=== PATIENT | male | born 1965 | race Caucasian/White ===

== ENCOUNTER 2019-01-16 21:04 | Emergency (ER) | payer OTHER ==
[2019-01-16 21:15] VITALS: RESP 18
[2019-01-16] MEDS ORDERED: Iohexol 240 (50 ml) PO STA (22:35)
[2019-01-16] MEDS ORDERED: Iohexol 240 (50 ml) ONE (22:42)
--- NOTE | 2019-01-16 22:58 | C.PDOC ---
History Of Present Illness 53 year old male was taking a bath yesterday and slipped out of the tub, lost his balance and grabbed onto the light switch and shocked himself, he was able to let go and fell into the tub and struck his lower back and flank. Since this morning he reports having trouble passing urine, states he has a weak stream and abdominal distention. Denies dysuria but did note bloody urine tonight.. Time Seen by Provider: 01/16/19 21:56 Chief Complaint (Nursing): Trauma History Per: Patient History/Exam Limitations: no limitations Onset/Duration Of Symptoms: Other (Yesterday) Current Symptoms Are (Timing): Still Present Associated Symptoms: Other (Trouble passing urine) Alleviating Factors: None Recent travel outside of the [place]: No Past Medical History Reviewed: Historical Data, Nursing Documentation, Vital Signs Vital Signs: Last Vital Signs Temp 97.9 F 01/16/19 21:08 Pulse 100 H 01/16/19 21:08 Resp 18 01/16/19 21:08 BP 192/148 H 01/16/19 21:08 Pulse Ox 97 01/16/19 21:08 Primary Care Provider: Non [facility] Provider, - Medical History PMH: Back Problems, Depression, HTN, Hyperlipidemia Family History: States: Unknown Family Hx - Social History Hx Alcohol Use: No (DENIED) Hx Substance Use: No (DENIED) - Immunization History Hx Tetanus Toxoid Vaccination: No Hx Influenza Vaccination: No Hx Pneumococcal Vaccination: No Review Of Systems Constitutional: Negative for: Fever, Chills Cardiovascular: Negative for: Chest Pain, Palpitations Respiratory: Negative for: Cough, Shortness of Breath Gastrointestinal: Positive for: Other (Abdominal distention). Negative for: Nausea, Vomiting Genitourinary: Positive for: Other (Trouble passing urine). Negative for: Dysuria, Hematuria Skin: Positive for: Bruising Neurological: Negative for: Weakness, Numbness Physical Exam - Physical Exam Appears: Non-toxic Skin: Warm, Ecchymosis (several area at his right lower back and right hip) Head: Atraumatic, Normacephalic Eye(s): bilateral: Normal Inspection Oral Mucosa: Moist Neck: Normal, No Midline Cervical Tenderness, No Paracervical Tenderness, Supple Chest: Symmetrical, No Tenderness Cardiovascular: Rhythm Regular Respiratory: Normal Breath Sounds, No Rales, No Rhonchi, No Wheezing Gastrointestinal/Abdominal: Bowel Sounds (Quiet), Soft, Tenderness (Suprapubic), Distention (Mildly) Back: Other (Diffuse tenderness, no point spinal tenderness) Extremity: Normal ROM (x4) Neurological/Psych: Oriented x3, Normal Speech Gait: Steady (Able to weight bear) ED Course And Treatment - Laboratory Results Result Diagrams: 01/16/19 23:16 01/16/19 23:16 Lab Interpretation: Abnormal (WBC 12.5, BUN 23, CPK 422, UA RBC 1184) O2 Sat by Pulse Oximetry: 97 (room air) Pulse Ox Interpretation: Normal Progress Note: CT abd/pel, EKG, blood work, and urinalysis ordered. Lopressor administered. Patient treated with IV fluids and Percocet. Disposition - Disposition Disposition Time: 00:50 Condition: FAIR - Clinical Impression Clinical Impression: Contusion, back, Hematuria - PA / HEAD BANQUET WAITRESS / Resident Statement MD/DO has reviewed & agrees with the documentation as recorded. - Scribe Statement The provider has reviewed the documentation as recorded by the Scribe Dariusz Pereira All medical record entries made by the Delmyibrose were at my direction and personally dictated by me. I have reviewed the chart and agree that the record accurately reflects my personal performance of the history, physical exam, medical decision making, and the department course for this patient. I have also personally directed, reviewed, and agree with the discharge instructions and disposition. Physician Patient Turnover Patient Signed Over To: Latisha Anderson Handoff Comments: Pending CT scan
[2019-01-16 23:19] LABS: BASO # 0.1 K/uL (0.0-0.2); BASO % 0.8 % (0.0-2.0); EOS # 0.6 K/uL (0.0-0.7); HEMOGLOBIN 16.2 g/dL (12.0-18.0); LYMPH # 2.6 K/uL (1.0-4.3); LYMPH % 20.4 % (20.0-40.0); MEAN CELL VOLUME 95.3 fL (80.0-94.0); MEAN CORPUSCULAR HEMOGLOBIN 33.6 pg (27.0-31.0); MEAN CORPUSCULAR HGB CONC 35.3 g/dL (33.0-37.0); MEAN PLATELET VOLUME 7.7 fL (7.2-11.7); MONO % 7.8 % (0.0-10.0); NEUT # 8.2 K/uL (1.8-7.0); NRBC % 0.2 % (0.0-2.0); RBC 4.83 Mil/uL (4.40-5.90); RED CELL DISTRIBUTION WIDTH 13.4 % (11.5-14.5); WHITE BLOOD COUNT 12.5 K/uL (4.8-10.8)
[2019-01-16 23:24] LABS: SPERM URINE OCC /hpf; URINE BILIRUBIN NEGATIVE (NEGATIVE); URINE BLOOD 2+ (NEGATIVE); URINE CALCIUM OXALATE CRYSTALS OCC /hpf (<OCC); URINE CLARITY Hazy (Clear); URINE COLOR Yellow (YELLOW); URINE GLUCOSE (UA) NORMAL (Normal); URINE LEUKOCYTE ESTERASE NEG Leu/uL (Negative); URINE PROTEIN 3+ mg/dL (NEGATIVE); URINE UROBILINOGEN NORMAL mg/dL (0.2-1.0)
[2019-01-16 23:31] LABS: BLOOD UREA NITROGEN 23 mg/dL (9-20); GFR NON-AFRICAN AMERICAN > 60; LIPASE 168 U/L (23-300)
[2019-01-16 23:36] LABS: ALB/GLOB RATIO 1.5 (1.0-2.1); ALT/SGPT 53 U/L (21-72); AST/SGOT 69 U/L (17-59)
[2019-01-17] MEDS ORDERED: Iodixanol 320 mg/ml 150 ml Bottle IV ONE (00:45)
[2019-01-17] MEDS ORDERED: Oxycodone/Acetaminophen 5/325 mg Tab PO STA (00:47)
[2019-01-17] MEDS ORDERED: Sodium Chloride 0.9% 1,000 ML IV ONE ×3 (00:47→03:02)
[2019-01-17] MEDS ORDERED: Oxycodone/Acetaminophen 5/325 mg Tab ONE (01:50)
[2019-01-17] MEDS ORDERED: Sodium Chloride 0.9% 1,000 ML ONE (01:50)
[2019-01-17 02:59] VITALS: PULSE 70
[2019-01-17 05:27] VITALS: BP 128/77; TEMP 98; O2SAT 96
--- NOTE | 2019-01-17 11:04 | CARD ---
APPROVED REPORT Date of service: 01/16/2019 EKG Measurement Heart [id number] <Conclusion> Normal sinus rhythm Possible Left atrial enlargement Cannot rule out Inferior infarct, age undetermined Abnormal ECG
--- NOTE | 2019-01-17 13:15 | CT ---
PROCEDURE: CT Abdomen and Pelvis with oral and IV contrast. HISTORY: abd pain COMPARISON: None available TECHNIQUE: Contiguous axial images of the abdomen and pelvis. Oral and IV contrast was administered. Coronal and Sagittal reformats generated and reviewed. Contrast dose: 100 mL Visipaque 320 IV Radiation dose: Total exam DLP = 600.83 mGy-cm. This CT exam was performed using one or more of the following dose reduction techniques: Automated exposure control, adjustment of the mA and/or kV according to patient size, and/or use of iterative reconstruction technique. FINDINGS: LOWER THORAX: No visible consolidation, pleural effusion, or pneumothorax. LIVER: Hypoattenuation of the liver compatible with hepatic steatosis. GALLBLADDER AND BILE DUCTS: Unremarkable. PANCREAS: Unremarkable. SPLEEN: 14 mm probable splenule. Otherwise unremarkable. ADRENALS: Unremarkable. KIDNEYS AND URETERS: The kidneys enhance symmetrically. 4 mm calculus at the distal right UVJ proximal hydroureter and hydronephrosis. No left-sided hydronephrosis or hydroureter. BLADDER: Asymmetric/irregular abnormal wall thickening of the urinary bladder. REPRODUCTIVE: The prostate gland measures approximately 3.6 x 4.2 cm. APPENDIX: The appendix appears within normal limits of caliber. No secondary signs of acute appendicitis. BOWEL: The stomach is nondistended. Right hemicolectomy. The bowel loops appear within normal limits of caliber without evidence of intestinal obstruction. Diverticulosis without CT evidence of acute diverticulitis. Wall thickening of the rectosigmoid colon; correlate for colitis. PERITONEUM: No significant free fluid. No definite free air. LYMPH NODES: No bulky lymphadenopathy identified. VASCULATURE: No aortic aneurysm. No atherosclerotic calcification or mural plaque present. BONES: No acute osseous abnormality is detected. OTHER FINDINGS: None. IMPRESSION: 4 mm obstructing calculus at the distal right UVJ with proximal hydroureter nephrosis. Irregular thick-walled urinary bladder; recommend correlation with urinalysis. Cystoscopy may be considered for further evaluation if indicated. Right hemicolectomy. Wall thickening of the rectosigmoid colon; correlate for colitis. Diverticulosis. Hypoattenuation of the liver compatible with hepatic steatosis. Additional findings as above. Preliminary impression was provided by [facility]. Study marked for PA review.
== END 2019-01-17 06:05 | disposition home or self-care (01) ==
LOC: C.ER 21:04
DX: S30.0XXA Contusion of lower back and pelvis, initial encounter (principal); W18.2XXA Fall in (into) shower or empty bathtub, initial encounter; Y93.E1 Activity, personal bathing and showering; N13.2 Hydronephrosis with renal and ureteral calculous obstruction; R31.9 Hematuria, unspecified
CPT/HCPCS: 74177; 80053; 81001; 82550; 83690; 85025; 93005; 96361; 96374; 99285; J1885; J7030; Q9966; Q9967